=== PATIENT | female | born 1960 | race Caucasian/White ===

== ENCOUNTER 2016-02-29 12:10 | Inpatient (IN) | payer BC, MEDICAID ==
[~2016-02-29] VITALS: Ht 144.8 cm; Wt 45.4 kg
[~2016-02-29 12:10] MED LIST: COREG6.25 MG PO; LIVALO1 MG PO; LIVALO2 MG PO; PREDNISONE5 MG PO; PROAIR HFA8.5 GM INH; PROCARDIA XL60 MG PO; TUMS500 MG PO; ZANTAC150 MG PO; ZETIA10 MG PO
[2016-02-29 12:39] VITALS: BP 201/80
[2016-02-29] MEDS ORDERED: RENAGEL800 MG (12:50)
[2016-02-29] MEDS ORDERED: METOPROLOL TART50 MG PO (12:51)
[2016-02-29] MEDS ORDERED: HYDROCODON-ACE1 EAC7 PO (12:51)
[2016-02-29] MEDS ORDERED: PROTONIX40 MG PO (12:51)
[2016-02-29] MEDS ORDERED: VENTOLIN HFA18 GM INH (12:52)
[2016-02-29 12:53] VITALS: BP 201/80; BMI 21.7
[2016-02-29 12:54] LABS: BASOPHILS 0.1 % (0.0-2.0); EOSINOPHILS 0.9 % (0-7); HEMATOCRIT 35.9 % (36.0-48.0); HEMOGLOBIN 12.4 g/dL (12-16); IMMATURE GRANULOCYTES 0.1 % (0-5); LYMPHOCYTES 24.5 % (15-50); MCH 33.3 pg (26.0-34.0); MCHC 34.5 g/dL (31.0-37.0); MCV 96.5 fL (80.0-100.0); MEAN PLATELET VOLUME 10.8 fL (7.4-10.4); MONOCYTES 6.7 % (2-11); NEUTROPHILS 67.7 % (40-80); PLATELET COUNT 170 10x3/uL (130-400); RBC 3.72 10x6/uL (4.00-5.40); RDW 12.8 % (11.5-14.5); WBC 6.9 10x3/uL (4.8-10.8)
--- NOTE | 2016-02-29 13:22 | NUR ---
bs 27. d 50 25 gm given ivp
--- NOTE | 2016-02-29 13:40 | NUR ---
FSBS RE-CHECKED NOW AT 78. REAL SELAM MIST GIVEN AND ENCOURAGED TO DRINK.
--- NOTE | 2016-02-29 14:21 | NUR ---
1408-FSBS IS 57. ANOTHER 1/2 AMP OF D50 GIVEN.
[2016-02-29 15:41] LABS: ALBUMIN 2.9 g/dL (3.4-5.0); ANION GAP 9.6 mmol/L (8-16); BILIRUBIN - TOTAL 0.41 mg/dL (0.2-1.3); CALCIUM 8.2 mg/dL (8.5-10.1); CARBON DIOXIDE 27.8 mmol/L (21.0-32.0); CREATININE - SERUM 5.2 mg/dL (0.6-1.3); PROTEIN - SERUM 5.7 g/dL (6.4-8.2)
--- NOTE | 2016-02-29 15:41 | NUR ---
PATIENT IS DOING WELL WITH BEDSIDE DIALYSIS. WILL CONTINUE TO MONITOR.
[2016-02-29 15:42] LABS: POTASSIUM - SERUM 2.4 mmol/L (3.5-5.1)
[2016-02-29 15:49] VITALS: BP 150/69
--- NOTE | 2016-02-29 15:55 | NUR ---
1540-CRITICAL POTASSIUM RESULT OF 2.4. CATRINA LOPEZ APN CALLED TO NOTIFY HER. AWAITING CALL BACK. 1545-NEW ORDERS RECEIVED.
--- NOTE | 2016-02-29 16:31 | NUR ---
BLOOD SUGAR IS 59. 2 CONTAINERS OF APPLE JUICE GIVEN WITH 1 PACKAGE OF SUGAR. STILL ON DIALYSIS.
--- NOTE | 2016-02-29 17:15 | NUR ---
RE-CHECKED BLOOD SUGAR WITH RESULT OF 67. MOTHER IS AT BEDSIDE. INSTRUCTED TO BOTH PATIENT AND MOTHER THAT THE PATIENT HAS GOT TO EAT SUPPER WITH HER BLOOD SUGAR. PATIENT REPLIES, "I AM NOT HUNGRY". I TOLD HER THAT SHE NEEDS TO EAT. MOTHER HAD GIVEN HER TWINKE EARILER.
--- NOTE | 2016-02-29 19:32 | NUR ---
INFORMED THAT PT GLUCOSE 56. PROVIDED PT WITH SANDWICH TRAY AND APPLE JUICE. PT STILL HAD DINNER TRAY PRESENT IN ROOM, ASKED PT IF SHE WOULD LIKE TO FINISH DINNER TRAY (APPROX 75% LEFT) OR IF SHE WOULD LIKE TO EAT THE SANDWICH. PT STATED THAT SHE WOULD EAT THE SANDWICH. PT ALSO HAD A TWINKIE ON DINNER TRAY THAT WAS HALF EATEN.
--- NOTE | 2016-02-29 21:15 | NUR ---
RECHECKED PT FSBS. CURRENTLY 69. PT DEMONSTRATES POOR APPETITE. ADMINISTERED 25ML D50
[2016-02-29 22:37] VITALS: BP 142/84
--- NOTE | 2016-03-01 00:16 | NUR ---
pt fsbs rechecked. currently 56. administered 1 tube insta gluc
[2016-03-01 01:38] VITALS: BP 179/72
--- NOTE | 2016-03-01 01:51 | NUR ---
PT RESTING SOUNDLY WITHOUT C/O OR DISTRESS NOTED. CALL LIGHT WITHIN REACH. WILL CONT TO MONITOR.
--- NOTE | 2016-03-01 03:28 | NUR ---
FSBS 67 PROVIDED PT WITH APPLE JUICE
[2016-03-01 05:55] VITALS: BP 159/67
[2016-03-01 07:22] LABS: BASOPHILS 0.2 % (0.0-2.0); EOSINOPHILS 2.2 % (0-7); HEMATOCRIT 33.6 % (36.0-48.0); HEMOGLOBIN 11.3 g/dL (12-16); IMMATURE GRANULOCYTES 0.2 % (0-5); LYMPHOCYTES 45.8 % (15-50); MCH 32.8 pg (26.0-34.0); MCHC 33.6 g/dL (31.0-37.0); MCV 97.7 fL (80.0-100.0); MEAN PLATELET VOLUME 11.1 fL (7.4-10.4); MONOCYTES 6.8 % (2-11); NEUTROPHILS 44.8 % (40-80); PLATELET COUNT 155 10x3/uL (130-400); RBC 3.44 10x6/uL (4.00-5.40); RDW 13.2 % (11.5-14.5)
[2016-03-01 07:31] LABS: ANION GAP 10.5 mmol/L (8-16); CALCIUM 8.3 mg/dL (8.5-10.1); CARBON DIOXIDE 28.6 mmol/L (21.0-32.0); CREATININE - SERUM 4.6 mg/dL (0.6-1.3)
[2016-03-01 07:33] LABS: POTASSIUM - SERUM 3.1 mmol/L (3.5-5.1)
[2016-03-01 07:49] VITALS: BP 165/62
--- NOTE | 2016-03-01 08:01 | NUR ---
PT RESTING IN BED WITH FAMILY MEMBER AT BEDSIDE CALL LIGHT IN REACH NO PROBLEMS WILL MONITER
--- NOTE | 2016-03-01 09:10 | NUR ---
RESTS IN BED WITHOUT NEEDS VOICED. IV PATENT. CALL LIGHT IN REACH. WILL CONT. PLAN OF CARE.
[2016-03-01 10:54] VITALS: Ht 144.8 cm; Wt 45.4 kg
[2016-03-01 11:47] VITALS: BP 107/74
--- NOTE | 2016-03-01 12:00 | NUR ---
PT RESTING IN BED WITH EYES OPEN CALL LIGHT IN REACH NO PROBLEMS WILL MONITER
--- NOTE | 2016-03-01 14:30 | NUR ---
PT IV TO LEFT HAND INFILTRATED IV REMOVED TIP INTACT PT HAND SWOLLEN RESITED IV TO LEFT AC X 2 ATTEMPTS IV FLUIDS RUNNING OREDERED WILL SARAH
[2016-03-01 15:54] VITALS: BP 153/73
--- NOTE | 2016-03-01 20:09 | NUR ---
RESTING IN BED. ALERT ORIENTED CONVERSANT. DENIES NEEDS. NO ACUTE DISTRESS NOTED. PT HAPPY THAT BLOOD SUGAR LEVELS STAYING WITHIN NORMAL LIMITS.
[2016-03-01 20:37] VITALS: BP 183/73
--- NOTE | 2016-03-01 23:10 | NUR ---
PT LAYING IN BED NO DISTRESS OBSERVED CALL LIGHT IN REACH SRX2 BED LOW AND LOCKED WILL MONITOR
[2016-03-02 00:17] VITALS: BP 186/73
[2016-03-02 04:29] VITALS: BP 162/62
[2016-03-02 06:25] LABS: BASOPHILS 0.4 % (0.0-2.0); EOSINOPHILS 4.5 % (0-7); HEMATOCRIT 32.2 % (36.0-48.0); HEMOGLOBIN 10.9 g/dL (12-16); IMMATURE GRANULOCYTES 0.2 % (0-5); MCH 32.6 pg (26.0-34.0); MCHC 33.9 g/dL (31.0-37.0); MCV 96.4 fL (80.0-100.0); MEAN PLATELET VOLUME 10.4 fL (7.4-10.4); MONOCYTES 8.1 % (2-11); NEUTROPHILS 38.8 % (40-80); PLATELET COUNT 139 10x3/uL (130-400); RBC 3.34 10x6/uL (4.00-5.40); RDW 12.5 % (11.5-14.5); WBC 4.9 10x3/uL (4.8-10.8)
[2016-03-02 06:57] LABS: CALCIUM 8.2 mg/dL (8.5-10.1); CARBON DIOXIDE 24.9 mmol/L (21.0-32.0); CREATININE - SERUM 7.1 mg/dL (0.6-1.3); MAGNESIUM - SERUM 1.5 mg/dL (1.8-2.4); PHOSPHOROUS 3.3 mg/dL (2.5-4.9)
[2016-03-02 06:59] LABS: POTASSIUM - SERUM 2.9 mmol/L (3.5-5.1)
--- NOTE | 2016-03-02 07:22 | NUR ---
RECIEVED REPORT ON PATIENT, PATIENTIS ALERT AND ORIENTED AT THIS TIME. PATIENT HAS A L UPPER ARM IV WITH D10 INFUSING AT 50ML/HR. PATIENT IS ON ROOM AIR WITH NAD NOTED, DENIES ANY SOB. PATIENT DENIES ANY NEEDS OR COMPLAINTS. BED LOW AND LOCKED. CPOC
[2016-03-02 07:45] VITALS: BP 153/68
--- NOTE | 2016-03-02 08:45 | NUR ---
MORNING MEDICATIONS GIVEN, ASSESSMENT DONE. PATIENT DENIES ANY NEEDS. CPOC
--- NOTE | 2016-03-02 10:30 | NUR ---
INFORMED CATRINA LOPEZ ABOUT PATIENT POTASSIUM BEING 2.9 SHE SAID SHE WOULD LOOK AT IT AND PUT ORDERS IN. CPOC
[2016-03-02 11:57] VITALS: BP 155/77
--- NOTE | 2016-03-02 12:30 | NUR ---
PATIENT SITTING UP IN BED EATING LUNCH. DENIES ANY NEEDS. CPOC
[2016-03-02 15:03] VITALS: BP 163/74
--- NOTE | 2016-03-02 15:18 | NUR ---
DC PATIENT IVF. PATIENT DENIES ANY NEEDS. CPOC
--- NOTE | 2016-03-02 16:20 | NUR ---
PATIENT FSBS 95, WILL CONT TO MONITOR. CPOC
--- NOTE | 2016-03-02 18:00 | NUR ---
PATIENT REQUESTING VANILLA ICE CREAM, GIVEN DENIES ANY OTHER NEEDS OR COMPLAINTS AT THIS TIME. CPOC
--- NOTE | 2016-03-02 19:30 | NUR ---
ASSESSMENT COMPLETE, DENIES NEEDS AT THIS TIME. LEFT HAND SWELLING NOTED, SKIN TIGHT, PLACED UP ON PILLOW AND ADDED HEAT PACK FOR C 7 C. SERGIO WELL. LEFT AC SL INTACT WITH NO R/S NOTED AT SITE. UP WITH MIN ASSIST, SERGIO WELL. HOB UP SR UP X2, C/L IN REACH. CONTINUE TO MONITOR, DID GIVE HS NITE TRAY AT THIS TIME.
[2016-03-02 20:00] VITALS: BP 152/70
--- NOTE | 2016-03-02 20:30 | NUR ---
FSBS "147" NO COVERAGE NEEDED AT THIS TIME. VOICES NO C/O PAIN OR DISCOMFORT C/L IN REACH.
[2016-03-03] VITALS: BP 170/71
--- NOTE | 2016-03-03 01:17 | NUR ---
EYES CLOSED, RESP EVEN AND UNLAB WITH NO S/S OF ACUTE DISTRESS NOTED. C/L IN REACH.
[2016-03-03 04:00] VITALS: BP 143/74; BP 171/74
[2016-03-03 05:39] LABS: BASOPHILS 0.2 % (0.0-2.0); EOSINOPHILS 6.6 % (0-7); HEMATOCRIT 32.5 % (36.0-48.0); HEMOGLOBIN 11.3 g/dL (12-16); IMMATURE GRANULOCYTES 0.2 % (0-5); LYMPHOCYTES 49.5 % (15-50); MCH 32.8 pg (26.0-34.0); MCHC 34.8 g/dL (31.0-37.0); MEAN PLATELET VOLUME 10.4 fL (7.4-10.4); MONOCYTES 5.7 % (2-11); NEUTROPHILS 37.8 % (40-80); RBC 3.45 10x6/uL (4.00-5.40); RDW 12.1 % (11.5-14.5)
[2016-03-03 06:10] LABS: MCV 94.2 fL (80.0-100.0); PLATELET COUNT 174 10x3/uL (130-400); WBC 6.4 10x3/uL (4.8-10.8)
[2016-03-03 06:38] LABS: ANION GAP 16.1 mmol/L (8-16); CARBON DIOXIDE 23.1 mmol/L (21.0-32.0); POTASSIUM - SERUM 3.2 mmol/L (3.5-5.1)
[2016-03-03 06:41] LABS: CREATININE - SERUM 9.1 mg/dL (0.6-1.3)
--- NOTE | 2016-03-03 07:17 | NUR ---
AM ROUNDING- PT LAYING IN BED ON BACK WITH EYES OPEN RESTING. REQUESTING FOR ME TO CLOSE THE DOOR WHEN I LEAVE. FSBS ACHS. ON ROOM AIR. NO MONITOR. RIGHT RESERVE ARM FOR AVF, + BRUIT, + THRILL. IV SEEN TO LEFT AC THAT IS SALINE LOCKED AT PATENT. LEFT HAND IS SLIGHTLY SWOLLEN FROM PTS BLOOD BEING DRAWN PER REPORT. PT IS UP WITH ASSIST. REFUSES SCDS. POTASSIUM IS 3.2 THIS AM. PER REPORT FROM FIREARMS INSTRUCTOR NURSEWERO RENAL DOCTOR IS AWARE OF HER POTASSIUM BEING LOW. WILL CONTINUE TO MONITOR.
[2016-03-03 08:00] VITALS: BP 128/60
[2016-03-03 12:00] VITALS: BP 124/67
[2016-03-03] MEDS ORDERED: RENAGEL800 MG PO (13:24)
--- NOTE | 2016-03-03 13:41 | NUR ---
PT HAS D/C ORDERS. PT IS SUPPOSE TO DIALYZE TODAY ON REGUALR SCHEDULE. DR. LEIVA IS ON UNIT. ASKED HIM IF PT NEEDS TO HAVE DIALYSIS BEFORE SHE LEAVES, DR. LEIVA STATED YES. CALLED DOWN TO DIALYSIS AND SPOKE WITH LORETA, SHE STATED THAT ANOTHER DIALYSIS NURSE WILL BE IN HER ROOM AFTER SHE GETS DONE WITH ANOTHER PT TO DO DIALYSIS. WILL CONTINUE TO MONITOR.
--- NOTE | 2016-03-03 13:51 | NUR ---
Patient Name: LEONEL FISHER Admission Status: Elective Accout number: [id number] Admission Date: 02-29-2016 : 1960 Admission Diagnosis: Attending: CHRISTIAN Current LOS: 3 Anticipated DC Date: 03-03-2016 Planned Disposition: Home Primary Insurance: [employer] Discharge Planning Comments: * Is the patient Alert and Oriented? Yes 0 * How many steps to enter\exit or inside your home? 9 0 * PCP DR. PEREZ, [place] 0 * Pharmacy [facility] IN [place] 0 * Preadmission Environment Home with Family 0 * ADLs Independent 0 * Equipment Cane 0 * Other Equipment NO MEDICAL EQUIPMENT PROVIDER PREFERENCE 0 * List name and contact numbers for known caregivers / representatives who currently or will assist patient after discharge: HARRIET STALLINGS, MOTHER, 0 * Community resources currently utilized Other 0 * Please name any agencies selected above. OUTPATIENT DIALYSIS [facility], M/W/F, 0530 AM MEDICAID ([facility]) TRANSPORTATION 0 * Additional services required to return to the preadmission environment? No 0 * Can the patient safely return to the preadmission environment? Yes 0 * Has this patient been hospitalized within the prior 30 days at any hospital? No 0 CM MET WITH PT IN ROOM TO DISCUSS DISCHARGE PLANNING AND NEEDS. PT REPORTS LIVING AT HOME INDEPENDENTLY WITH HER MOTHER. PT HAS A CANE AND NO MEDICAL EQUIPMENT PROVIDER PREFERENCE. PT HAS NO OUTSIDE SERVICES ASSISTING IN THE HOME. PT ATTENDS [facility] FOR OUTPATIENT HEMODIALYSIS NO M/W/F EARLY SHIFT, PT TAKES MEDICAID TRANSPORTATION TO AND FROM DIALYSIS. CM DISCUSSED AVAILABILITY OF HOME HEALTH, REHAB SERVICES AND MEDICAL EQUIPMENT. PT DENIES DISCHARGE NEEDS, REPORTS HER SISTER WILL PICK HER UP FOR DISCHARGE HOME. PT THINKS THE DOCTOR WILL BE PRESCRIBING HER A GLUCOMETER AT DISCHARGE AND IF SO, HER MOTHER HAS A LOCAL MEDICAL SUPPLY IN [place] TO PICK IT UP. PT DENIES DISCHARGE NEEDS, PT'S SISTER TO PICK HER UP THIS AFTERNOON. Boss Miner: Brayden Mcdowell
--- NOTE | 2016-03-03 15:46 | NUR ---
PATIENT PATHWAYS - PRL notified of admission. Patient is MWF @ 6:00am at the [facility] Dialysis unit. Medical records forwarded to the clinic for their records. BMM PRL
[2016-03-03 16:00] VITALS: BP 150/72
--- NOTE | 2016-03-03 18:16 | NUR ---
PT IS JUST GETTIN DONE WITH DIALYSIS. AWAITING SISTER AND [id number] TO COME GET HER TO BE D/C STATED SISTER WOULD BE HER AROUND 7:30. WILL PASS THIS ON TO ARCHITECTURE CONSULTANT NURSE.
--- NOTE | 2016-03-03 18:45 | NUR ---
D/C PAPERWORK EXPLAINED TO PT AND SIGNED BY PT. PLACED D/C PAPERWORK IN CHART. WILL PASS ON IN REPORT TO TAKE PTS IV CATHETER OUT WHEN SISTER GETS HERE TO PICK HER UP.
[2016-03-04 05:13] LABS: C-PEPTIDE 10.2 ng/mL (1.1-4.4)
[2016-03-09 03:06] LABS: INSULIN ANTIBODIES <5.0 uU/mL (())
[2016-03-14 19:10] LABS: INSULIN LIKE GROWTH FACTOR II 1225 ng/mL (())
== END 2016-03-03 19:20 | disposition home or self-care (01) | DRG 917 ==
LOC: D.M2 12:10
PROVIDERS: Internal Medicine; ADMIT Internal Medicine Nephrology
PROC: 5A1D60Z (ICD-10-PCS; principal; 2016-02-29)
DX: T50.991A Poisoning by other drugs, medicaments and biological substances, accidental (unintentional), initial encounter (principal); N18.6 End stage renal disease; I12.0 Hypertensive chronic kidney disease with stage 5 chronic kidney disease or end stage renal disease; Z94.0 Kidney transplant status; E16.0 Drug-induced hypoglycemia without coma; Z99.2 Dependence on renal dialysis; D63.1 Anemia in chronic kidney disease; E87.6 Hypokalemia

== ENCOUNTER 2017-06-21 05:12 | Inpatient (IN) | payer MEDICAID ==
[2017-06-21] VITALS (26 sets, daily range): BP systolic 105–211; BP diastolic 41–97
[~2017-06-21] VITALS: Ht 144.8 cm; Wt 41.1 kg
--- NOTE | ~2017-06-21 | HEMODYNAMI ---
PATIENT:LEONEL FISHER MEDICAL RECORD: [id number] : 60 LOCATION:[facility] D.2136 [facility]# [id number] ADMISSION DATE: 06/21/17 Generatedon:06/25/201711:05 Patient name: LEONEL FISHER Patient #: [id number] SSN: DO B: 1960 Date of study: 06/25/2017 Page: Of Hemodynamic Procedure Report Patient Data Patient Demographics Procedure consent was obtained First Name: LEONEL Gender: Female Last Name: NATALIA : 1960 Middle Initial: E Age: 56 year(s) Patient #: [id number] Race: Unknown Additional ID: [id number] Contact details [address]: [address] [place] [address] State: [place] City: [place] Zip code: [address] Past Medical History Allergies Allergen Reaction Date Comments Reported Other allergy 06/25/2017 PCN, Codeine, Phenergan, azithromycin, adhesive, hydrocodone. Admission Admission Data Admission Date: 06/21/2017 Admission Time: 6:23 Room #: D.2136 Lab Results Lab Result Date: 06/25/2017 Lab Result Time: 5:03 Biochemistry Name Units Result Min Max BUN mg/dl 58 --(----)-* 7 18 Creatinine mg/dl 6.1 --(----)-* 0.6 1.3 CBC Name Units Result Min Max Hematocrit % 29.4 *-(----)-- 42 54 Hemoglobin g/dl 9.8 *-(----)-- 13.5 17.5 Procedure Procedure Types Cath Procedure Diagnostic Procedure Right Heart Right Heart Cath Right Heart Pharmacology Study Sedation Charges Moderate Sedation up to 15 minutes Procedure Description Procedure Date Procedure Date: 06/25/2017 Procedure Start Time: 10:37 Procedure End Time: 11:04 Procedure Staff Name Function Hill Serrano MD Performing Physician Bhargav Kwok RN Nurse Sherlyn Washington RT Scrub Cortez Ledbetter RT Monitor Procedure Data Cath Procedure Fluoroscopy Diagnostic fluoroscopy Total fluoroscopy Time: 3.4 time: 3.4 min min Diagnostic fluoroscopy Total fluoroscopy dose: 49 dose: 49 mGy mGy Contrast Material Contrast Material Type Amount (ml) Isovue 300 0 Entry Location Entry Primary Successful Side Size Upsize Upsize Entry Closure Poole ccessful Closure Location (Fr) 1 (Fr) 2 (Fr) Remarks Device Remarks Femoral Right 7 Fr Manual vein Short Compression Estimated blood loss: 5 ml Diagnostic catheters Device Type Used For End Catheter Placement SWAN 7Fr Thermodilution Procedure cather (131F7P) Procedure Complications No complications Procedure Medications Medication Administration Route Dosage 0.9% NaCl I.V. 10 ml/hr Oxygen etCO2 Nasal cannula 2 l/min Heparin Flush Bag added to field 2 bags (1000units/500ml NS) Lidocaine 2% added to field 20 Versed I.V. 2 mg Fentanyl I.V. 100 mcg Adenosine (mcg) I.V. 50 Adenosine (mcg) I.V. 100 Adenosine (mcg) I.V. 150 Adenosine (mcg) I.V. 200 Adenosine (mcg) wasted 200 Hemodynamics Rest HGB: 9.8 (g/dl) Heart Rate: 69 (bpm) Pressure Samples Time Site Value (mmHg) Purpose Heart Use Rate(bpm) 10:47 PA 80/40(58) Snapshot 67 10:48 PCW 43/65(48) Snapshot 65 10:51 PA 83/42(61) Snapshot 66 10:54 PA 75/36(55) Snapshot 64 10:56 PA 71/35(48) Snapshot 71 10:58 PA 64/30(48) Snapshot 69 11:00 RV 62/15,23 Snapshot 64 11:00 RA 24/24(21) Snapshot 63 Snapshots Pre Cath Intra NCS Post Cath Vital Signs Time Heart Resp SPO2 etCO2 NIBP (mmHg) Rhythm Pain Sedation Rate (ipm) (%) (mmHg) Status Level (bpm) 10:25:02 67 32 100 30.6 200/81(144) NSR 0 (11) 10(A) , No pain 10:29:53 66 14 100 29.9 194/76(152) NSR 0 (11) 10(A) , No pain 10:34:42 63 16 100 0 176/80(144) NSR 0 (11) 10(A) , No pain 10:40:11 67 14 90 24.7 198/99(165) NSR 0 (11) 10(A) , No pain 10:44:56 62 12 85 46.3 201/91(151) NSR 0 (11) 9(A) , No pain 10:49:43 65 15 98 52.3 200/90(155) NSR 0 (11) 9(A) , No pain 11:02:54 62 6 99 41.9 169/78(149) NSR 0 (11) 10(A) , No pain Medications Time Medication Route Dose Verified Delivered Reason Not es Effectiveness by by 10:35:47 0.9% NaCl I.V. 10 ml/hr Bhargav Bhargav Per Lorigan Lorigan physician RN RN 10:35:59 Oxygen etCO2 2 l/min Bhargav Bhargav Per Nasal Lorigan Lorigan physician cannula RN RN 10:36:11 Heparin Flush added 2 bags Bhargav Bhargav used for Bag to Lorigan Lorigan procedure (1000units/500ml field RN RN NS) 10:36:22 Lidocaine 2% added 20ml vial Bhargav Bhargav for local to Lorigan Lorigan anesthetic field RN RN 10:36:32 Versed I.V. 2 mg Bhargav Bhargav for sedation Lorigan Lorigan RN RN 10:36:41 Fentanyl I.V. 100 mcg Bhargav Bhargav for sedation Lorigan Lorigan RN RN 10:50:33 Adenosine (mcg) I.V. 50 Bhargav Bhargav for mcg\kg\min Lorigan Lorigan vasodilation RN RN 10:52:35 Adenosine (mcg) I.V. 100 Bhargav Bhargav for mcg\kg\min Lorigan Lorigan vasodilation RN RN 10:54:56 Adenosine (mcg) I.V. 150 Bhargav Bhargav for mcg\kg\min Lorigan Lorigan vasodilation RN RN 10:56:34 Adenosine (mcg) I.V. 200 Bhargav Bhargav for mcg\kg\min Lorigan Lorigan vasodilation RN RN 11:00:00 Adenosine (mcg) wasted 200 Bhargav Bhargav to sharp's mcg\kg\min Lorigan Lorigan RN process control operator Log Time Note 9:36:26 Time tracking: Regular hours (M-F 7:00 - 5:00) 9:36:29 Plan of Care:Hemodynamics will remain stable., Cardiac rhythm will remain stable., Comfort level will be maintained., Respiratory function will remain adequate., Patient/ family verbilizes understanding of procedure., Procedure tolerated without complication., Recovers from procedure without complications.. 9:36:36 Use device set Right Heart Kit 9:36:41 SHEATH 7FR [place] ([id number]) opened to sterile field. 9:36:41 Medex Logical Single Monitoring RHC Kit ([id number]) opened to sterile field. 9:36:45 Use device set CATH PACK 9:36:51 Medline Cath Pack ([id number]) opened to sterile field. 9:36:52 Bag Decanter (2002S) opened to sterile field. 9:36:57 ACIST Syringe (23978) opened to sterile field. 9:36:57 ACIST Hand Control (91071) opened to sterile field. 9:36:58 ACIST Manifold (06960) opened to sterile field. 9:58:45 Bhargav Kwok RN sent for patient. Start room use. 10:23:18 Patient received from Med II to CCL 1 Alert and oriented. Tansferred to table in Supine position. 10:23:19 Warm blankets applied, and alan hugger turned on for patient comfort. 10:23:20 Correct patient and procedure confirmed by team. 10:23:21 Signed procedure consent form obtained from patient. 10:23:22 ECG and BP/O2 sat monitors applied to patient. 10:23:22 Vital chart was started 10:23:24 Baseline sample Acquired. 10:23:28 Rhythm: sinus rhythm 10:23:37 Full Disclosure recording started 10:23:43 H&P Date Dictated: 06/24/2017 Within 30 days and on chart.. 10:23:45 Pre-procedure instructions explained to patient. 10:23:45 Pre-op teaching completed and patient verbalized understanding. 10:23:46 Family in waiting room. 10:23:53 Patient NPO since Breakfast. 10:24:33 Patient allergic to Other allergyPCN, Codeine, Phenergan, azithromycin, adhesive, hydrocodone. 10:24:35 Is the patient allergic to Iodine/contrast media? No. 10:24:36 Is patient on blood thinner?No 10:24:46 Patient diabetic? No. 10:24:49 Previous problem with sedation/anesthesia? No ? 10:24:50 Snore? No 10:24:51 Sleep apnea? No 10:24:52 Deviated septum? No 10:24:53 Opens mouth fully? Yes 10:24:53 Sticks out tongue? Yes 10:24:56 Airway obstruction? Yes COPD 10:25:07 Dentures? No ? 10:25:12 Pre procedure: right dorsailis pedis pulse 1+ Palpable, but thready & weak; easily obliterated 10:25:14 Patient pain scale 0/10 ?. 10:25:18 IV patent on arrival in left forearm with 0.9% NaCl at [facility]. 10::59 Lab Result : Creatinine 6.1 mg/dl 10::59 Lab Result : BUN 58 mg/dl 10::59 Lab Result : Hemoglobin 9.8 g/dl ::59 Lab Result : Hematocrit 29.4 % 10:: Lab results completed and on chart. 10:26:04 Right groin area was prepped with chlora-prep and draped in sterile fashion 10::04 Alarms reviewed by R. N. 10::05 Sharps counted by scrub and verified by R.N. 10:34:09 Physician arrived 10:34:10 --------ALL STOP TIME OUT------ 10:34:10 Final Timeout: patient, procedure, and site verified with staff and physician. All members of the team are in agreement. 10:34:12 Right groin site verified by team. 10:34:15 Physical assessment completed. ASA score P 2 - A patient with mild systemic disease as per Hill Serrano MD. 10:34:18 Sedation plan: IV Moderate Sedation Medication:Versed, Fentanyl 10:34:26 Zero performed for pressure channel P1 10:35:47 0.9% NaCl 10 ml/hr I.V. was administered by Bhargav Kwok RN; Per physician; 10:35:59 Oxygen 2 l/min etCO2 Nasal cannula was administered by Bhargav Kwok RN; Per physician; 10:36:11 Heparin Flush Bag (1000units/500ml NS) 2 bags added to field was administered by Bhargav Kwok RN; used for procedure; 10:36:22 Lidocaine 2% 20ml vial added to field was administered by Bhargav Kwok RN; for local anesthetic; 10:36:32 Versed 2 mg I.V. was administered by Bhargav Kwok RN; for sedation; 10:36:41 Fentanyl 100 mcg I.V. was administered by Bhargav Kwok RN; for sedation; 10:37:00 Procedure started. 10:37:03 Local anesthetic to right femoral vein with Lidocaine 2% by Hill Serrano MD.INITIAL ACCESS ONLY 10:42:21 A 7 Fr Short sheath was inserted into the Right Femoral vein 10:44:34 A SWAN 7Fr Thermodilution cather (131F7P) was advanced over the wire and used for Procedure. 10:44:44 DIAGNOSTIC WIRE .025 150cm J ([id number]) opened to sterile field. 10:46:59 .025 WIRE ADVANCE THROUGH SWAN FOR PLACEMENT 10:47:07 Wire removed. 10:50:33 Adenosine (mcg) 50 mcg\kg\min I.V. was administered by Bhargav Kwok RN; for vasodilation; 10:51:36 Timer 1 started at 10:49 AM, stopped at 10:51 AM, duration 00:02:07 sec. 10:52:35 Adenosine (mcg) 100 mcg\kg\min I.V. was administered by Bhargav Kwok RN; for vasodilation; 10:54:26 Timer 1 started at 10:52 AM, stopped at 10:54 AM, duration 00:02:06 sec. 10:54:56 Adenosine (mcg) 150 mcg\kg\min I.V. was administered by Bhargav Kwok RN; for vasodilation; 10:56:34 Adenosine (mcg) 200 mcg\kg\min I.V. was administered by Bhargav Kwok RN; for vasodilation; 10:56:47 Timer 1 started at 10:54 AM, stopped at 10:56 AM, duration 00:02:04 sec. 10:59:02 Timer 1 started at 10:56 AM, stopped at 10:59 AM, duration 00:02:05 sec. 11:00:00 Adenosine (mcg) 200 mcg\kg\min wasted was administered by Bhargav Kwok RN; to sharp's; 11:00:44 Catheter removed. 11:00:56 Sheath removed intact; hemostasis achieved with Manual Compression to the Right Femoral vein. 11:00:58 Procedure ended.(Physican Out) 11:01:19 Vital chart was stopped 11::22 Vital chart was started 11:01:58 Fluoroscopy time 03.40 minutes. 11:02:02 Fluoroscopy dose: 49 mGy 11:02:02 Flurop Dose total: 49 11:02:04 Contrast amount:Isovue 300 0ml. 11:02:07 Sharps counted by scrub and verified by R.N. 11:02:10 Insertion/operative site no bleeding no hematoma. 11:02:13 Post-op/insertion site Right Femoral vein dressed using a 4 x 4 and Tegaderm. 11:02:19 Post right femoral vein:stable, soft, clean and dry 11:02:28 Post Procedure Pulses reassessed and unchanged 11:02:31 Post-procedure physical assessment completed. ASA score P 2 - A patient with mild systemic disease as per Hill Serrano MD. 11:02:35 Post procedure rhythm: unchanged. 11:02:38 Estimated blood loss: 5 ml 11:02:39 Post procedure instruction explained to patient.Patient verbalizes understanding. 11:02:40 Patient needs reinforcement of post procedure teaching. 11:03:31 Procedure type changed to Cath procedure, Diagnostic procedure, Right Heart, Right Heart Cath, Right Heart Pharmacology Study, Sedation Charges, Moderate Sedation up to 15 minutes 11:03:48 Procedure and supply charges have been captured, reviewed, submitted and are correct. 11:03:50 Procedure Complication : No complications 11:03:53 Vital chart was stopped 11:03:54 See physician's report for complete and final results. 11:03:55 Report given to PCU. 11:03:57 Patient transfered to PCU with Stretcher. 11:04:00 Procedure ended. 11:04:00 Full Disclosure recording stopped 11:04:33 End room use (Document Last) Device Usage Item Name Manufacture Quantity Catalog Hospital Part Current Minima l Lot# / Number Charge Number Stock Stock Serial# Code SHEATH 7FR Terumo 1 [id number] [id number] 5 [place] ([id number]) Medex Logical Sexton's 1 [id number] 354834 44528 982108 5 Single Medical Monitoring RHC Kit ([id number]) Medline Cath Cardinal 1 [id number] 986586 53784 470129 5 Pack Health ([id number]) Bag Decanter Microtek 1 293521 28206 318022 5 () Medical Inc. ACIST Syringe Acist 1 57091 293009 143314 591812 20 (55636) Medical Systems Inc ACIST Hand Acist 1 79550 277025 444752 016644 5 Control Medical (46493) Systems Inc ACIST Manifold Acist 1 37539 111496 849265 335303 5 (03923) Medical Systems Inc SWAN 7Fr Lee 1 131F7P 556942 89387 540660 3 Thermodilution Lifesciences cather (131F7P) DIAGNOSTIC [place] 1 363980 579163 179947 678518 2 WIRE .025 150cm J (116012) Signature Audit [place] Stage Time Signature Unsigned Intra-Procedure 06/25/2017 Cortez Ledebtter 11:05:51 AM RT(R) Signatures Monitor : Cortez Ledbetter RT Signature : Date : Time : [address] [address]
--- NOTE | ~2017-06-21 | CN ---
PATIENT NAME:LEONEL FISHER MEDICAL RECORD: [id number] : 60 LOCATION:D. D.2136 ADMIT DATE: 06/21/17 ACCOUNT: [id number] CONSULTING PHYSICIAN: KIERA CAIN MD REFERRING PHYSICIAN: NAEL IBRAHIM MD DATE OF CONSULTATION: 06/24/2017 DIAGNOSES: 1. Shortness of breath, dyspnea on exertion. 2. Pulmonary hypertension. 3. End-stage renal disease. 4. Hypertension. 5. Gastroesophageal reflux disease. HISTORY OF PRESENT ILLNESS: Ms. Fisher presents with respiratory failure requiring extubation. She is now intubated. She had an echocardiogram revealing a pulmonary systolic pressure of 94. We were asked to do right heart catheterization with vasodilatory challenge to see if she is responsive to vasodilators. PHYSICAL EXAMINATION: GENERAL APPEARANCE: Well-nourished, well-developed, appears stated age. Level of distress, comfortable. PSYCHIATRIC: Mental status, alert, normal affect. Orientation, oriented to time, place and person. EYES: Lids and conjunctiva, noninjected. No discharge, no pallor. ENT: Lips, teeth, gums, normal dentition. Oropharynx, no cyanosis, no pallor. NECK: Carotid arteries, bilateral normal upstroke, no bruits, no thrills. JUGULAR VEINS: No jugular venous pressure or distention. CERVICAL LYMPH NODES: Nontender, nonenlarged. THYROID: Not enlarged. Nontender. No nodules. LUNGS: Respiratory effort, unlabored. CHEST: Normal curvature. No thoracic deformity. No chest wall tenderness. Percussion, resonant. Auscultation, clear. No wheezes, no rales, no rhonchi. CARDIOVASCULAR: Precordial exam, nondisplaced. No heaves or pericardial thrills. Rate and rhythm, regular. Heart sounds, normal S1, normal S2. No S3, no gallop, no rub. Systolic murmur, not heard. Diastolic murmur, not heard. EXTREMITIES: No cyanosis, no edema. Peripheral pulses, full and equal in all extremities, except as noted. No bruits appreciated. ABDOMEN: Soft, nondistended. Normal aorta. No bruit. Nontender. No masses. Liver, nontender, no hepatomegaly. Spleen, nontender, no splenomegaly. MUSCULOSKELETAL: No joint tenderness. No joint swelling. No erythema. NEUROLOGICAL: Normal gait, normal strength, normal tone. SKIN: Warm and dry. OVERALL IMPRESSION: Pulmonary hypertension that is severe suggested by echocardiogram. We will do a right heart catheterization with adenosine infusion to see if she responds to vasodilators. TRANSINT:[id number] Voice Confirmation ID: [id number] DOCUMENT ID: [id number] CONSULT REPORT [id number] LEONEL FISHER, KIERA JIMENEZ at 1444 CC: [id number] DICTATION DATE: 06/24/17 1602 COMPETITIVE SHOPPER: 06/24/17 192 DIS IN 06/26/17 [facility] [address] [place] [address]
[~2017-06-21 05:12] MED LIST changes: +HYDROCODON-ACE1 EAC7 PO; +METOPROLOL TART50 MG PO; +PROTONIX40 MG PO; +RENAGEL800 MG; +RENAGEL800 MG PO; +VENTOLIN HFA18 GM INH
[2017-06-21 08:15] LABS: ANION GAP 15.9 mmol/L (8-16); BASOPHILS 0.3 % (0-2); CALCIUM 8.9 mg/dL (8.5-10.1); CARBON DIOXIDE 22.5 mmol/L (21.0-32.0); CREATININE - SERUM 8.4 mg/dL (0.6-1.3); EOSINOPHILS 1.7 % (0-7); HEMATOCRIT 25.6 % (36.0-48.0); HEMOGLOBIN 8.3 g/dL (12-16); LYMPHOCYTES 45.8 % (15-50); MCH 31.2 pg (26.0-34.0); MCHC 32.4 g/dL (31.0-37.0); MCV 96.2 fL (80.0-100.0); MEAN PLATELET VOLUME 10.2 fL (7.4-10.4); MONOCYTES 9.2 % (2-11); PLATELET COUNT 152 10x3/uL (130-400); POTASSIUM - SERUM 3.4 mmol/L (3.5-5.1); RBC 2.66 10x6/uL (4.00-5.40); WBC 3.6 10x3/uL (4.8-10.8)
[2017-06-22] VITALS (24 sets, daily range): BP systolic 121–194; BP diastolic 53–80; Ht 144.8 cm; Wt 41.1 kg
[2017-06-22 03:56] LABS: BASOPHILS 0 % (0-2); EOSINOPHILS 0 % (0-7); HEMATOCRIT 25.9 % (36.0-48.0); HEMOGLOBIN 8.7 g/dL (12-16); IMMATURE GRANULOCYTES 0.3 % (0-5); LYMPHOCYTES 22.5 % (15-50); MCH 32.1 pg (26.0-34.0); MCHC 33.6 g/dL (31.0-37.0); MCV 95.6 fL (80.0-100.0); MEAN PLATELET VOLUME 10.8 fL (7.4-10.4); MONOCYTES 3.5 % (2-11); NEUTROPHILS 73.7 % (40-80); PLATELET COUNT 176 10x3/uL (130-400); RBC 2.71 10x6/uL (4.00-5.40); RDW 14.7 % (11.5-14.5); WBC 2.9 10x3/uL (4.8-10.8)
[2017-06-22 04:52] LABS: BILIRUBIN - TOTAL 0.47 mg/dL (0.2-1.3); CALCIUM 8.6 mg/dL (8.5-10.1); CARBON DIOXIDE 26.5 mmol/L (21.0-32.0); MAGNESIUM - SERUM 1.8 mg/dL (1.8-2.4); PHOSPHOROUS 3.3 mg/dL (2.5-4.9); PROTEIN - SERUM 5.9 g/dL (6.4-8.2)
[2017-06-22 04:55] LABS: ANION GAP 15.8 mmol/L (8-16); CREATININE - SERUM 5.1 mg/dL (0.6-1.3); POTASSIUM - SERUM 4.3 mmol/L (3.5-5.1); TROPONIN-I 0.083 ng/mL (0.000-0.060)
[2017-06-23] VITALS (24 sets, daily range): BP systolic 121–205; BP diastolic 51–93
[2017-06-23 04:36] LABS: BASOPHILS 0 % (0-2); EOSINOPHILS 0 % (0-7); HEMATOCRIT 30.3 % (36.0-48.0); HEMOGLOBIN 9.6 g/dL (12-16); LYMPHOCYTES 17.7 % (15-50); MCH 30.9 pg (26.0-34.0); MCHC 31.7 g/dL (31.0-37.0); MCV 97.4 fL (80.0-100.0); MEAN PLATELET VOLUME 10.7 fL (7.4-10.4); MONOCYTES 2.2 % (2-11); NEUTROPHILS 80.1 % (40-80); RBC 3.11 10x6/uL (4.00-5.40); RDW 14.4 % (11.5-14.5)
[2017-06-23 04:40] LABS: PLATELET COUNT 296 10x3/uL (130-400); WBC 4.1 10x3/uL (4.8-10.8)
[2017-06-23 04:46] LABS: ANION GAP 15.9 mmol/L (8-16); CALCIUM 8.7 mg/dL (8.5-10.1); CARBON DIOXIDE 28.9 mmol/L (21.0-32.0); POTASSIUM - SERUM 4.8 mmol/L (3.5-5.1)
[2017-06-23 05:02] LABS: CREATININE - SERUM 6.7 mg/dL (0.6-1.3)
[2017-06-24] VITALS (11 sets, daily range): BP systolic 164–217; BP diastolic 62–82
[2017-06-24 04:39] LABS: BASOPHILS 0 % (0-2); EOSINOPHILS 0 % (0-7); HEMATOCRIT 28.5 % (36.0-48.0); HEMOGLOBIN 9.1 g/dL (12-16); LYMPHOCYTES 16.3 % (15-50); MCH 31.3 pg (26.0-34.0); MCHC 31.9 g/dL (31.0-37.0); MCV 97.9 fL (80.0-100.0); MEAN PLATELET VOLUME 10.2 fL (7.4-10.4); MONOCYTES 4.8 % (2-11); NEUTROPHILS 78.9 % (40-80); RBC 2.91 10x6/uL (4.00-5.40); RDW 14.1 % (11.5-14.5); WBC 4.5 10x3/uL (4.8-10.8)
[2017-06-24 04:43] LABS: PLATELET COUNT 226 10x3/uL (130-400)
[2017-06-24 04:54] LABS: ANION GAP 14.9 mmol/L (8-16); CALCIUM 8.5 mg/dL (8.5-10.1); CARBON DIOXIDE 28.3 mmol/L (21.0-32.0); POTASSIUM - SERUM 4.2 mmol/L (3.5-5.1)
[2017-06-24 05:04] LABS: CREATININE - SERUM 4.7 mg/dL (0.6-1.3)
[2017-06-24 09:20] LABS: ANTI-GLOMERULAR BASMENT MEMBRN 2 units (0-20)
[2017-06-24 10:22] LABS: ANGIOTENSIN CONVERTING ENZYME 36 U/L (14-82)
[2017-06-24 15:27] LABS: ANCA - ANTIMYELOPEROXIDASE <9.0 U/mL (0.0-9.0); ANCA - ANTIPROTEINASE 3 <3.5 U/mL (0.0-3.5); ANCA - ATYPICAL <1:20 titer (Neg:<1:20); ANCA - CYTOPLASMIC <1:20 titer (Neg:<1:20); ANCA - PERINUCLEAR <1:20 titer (Neg:<1:20)
[2017-06-25] VITALS: BP 153/69
[2017-06-25 04:00] VITALS: BP 174/76
[2017-06-25 05:42] LABS: BASOPHILS 0 % (0-2); EOSINOPHILS 0 % (0-7); HEMATOCRIT 29.4 % (36.0-48.0); HEMOGLOBIN 9.8 g/dL (12-16); LYMPHOCYTES 18.5 % (15-50); MCH 31.7 pg (26.0-34.0); MCHC 33.3 g/dL (31.0-37.0); MEAN PLATELET VOLUME 10.3 fL (7.4-10.4); MONOCYTES 4.2 % (2-11); NEUTROPHILS 77.3 % (40-80); PLATELET COUNT 249 10x3/uL (130-400); RBC 3.09 10x6/uL (4.00-5.40); RDW 13.7 % (11.5-14.5); WBC 4.3 10x3/uL (4.8-10.8)
[2017-06-25 06:01] LABS: MCV 95.1 fL (80.0-100.0)
[2017-06-25 06:09] LABS: ANION GAP 18.8 mmol/L (8-16); CALCIUM 8.4 mg/dL (8.5-10.1); CARBON DIOXIDE 25.4 mmol/L (21.0-32.0); POTASSIUM - SERUM 4.2 mmol/L (3.5-5.1)
[2017-06-25 06:10] LABS: CREATININE - SERUM 6.1 mg/dL (0.6-1.3)
[2017-06-25 08:05] VITALS: BP 170/71
[2017-06-25 16:05] VITALS: BP 152/75
[2017-06-25 21:08] LABS: IMMUNOGLOBULIN E <2 IU/mL (0-100)
[2017-06-25 21:16] VITALS: BP 177/69
[2017-06-26 01:25] VITALS: BP 144/68
[2017-06-26 04:56] VITALS: BP 171/70
[2017-06-26 06:43] LABS: BASOPHILS 0 % (0-2); EOSINOPHILS 0 % (0-7); HEMATOCRIT 27.3 % (36.0-48.0); HEMOGLOBIN 8.8 g/dL (12-16); IMMATURE GRANULOCYTES 0.3 % (0-5); LYMPHOCYTES 23.9 % (15-50); MCHC 32.2 g/dL (31.0-37.0); MCV 96.1 fL (80.0-100.0); MEAN PLATELET VOLUME 10.7 fL (7.4-10.4); MONOCYTES 5.3 % (2-11); NEUTROPHILS 70.5 % (40-80); PLATELET COUNT 246 10x3/uL (130-400); RBC 2.84 10x6/uL (4.00-5.40); RDW 13.7 % (11.5-14.5); WBC 3.9 10x3/uL (4.8-10.8)
[2017-06-26 07:41] VITALS: BP 182/68
[2017-06-26] MEDS ORDERED: VIBRAMYCIN 100100 MG PO (12:38)
[2017-06-26] MEDS ORDERED: OMNICEF300 MG PO (12:39)
[2017-06-26] MEDS ORDERED: PREDNISONE10 MG PO (12:39)
[2017-06-26 16:13] VITALS: BP 127/87
== END 2017-06-26 16:33 | disposition home or self-care (01) | DRG 208 ==
LOC: D.CVICU 05:12 → D.M2 06:23 → D.CVICU 06:23 → D.M2 06-24 13:41
PROVIDERS: Internal Medicine Nephrology; Internal Medicine Pulmonary Disease
PROC: 5A1D70Z Performance of Urinary Filtration, Intermittent, Less than 6 Hours Per Day (ICD-10-PCS; principal; 2017-06-21)
PROC: 5A1945Z Respiratory Ventilation, 24-96 Consecutive Hours (ICD-10-PCS; 2017-06-21)
PROC: 0BH17EZ Insertion of Endotracheal Airway into Trachea, Via Natural or Artificial Opening (ICD-10-PCS; 2017-06-21)
DX: J96.22 Acute and chronic respiratory failure with hypercapnia (principal); N18.6 End stage renal disease; I12.0 Hypertensive chronic kidney disease with stage 5 chronic kidney disease or end stage renal disease; Z68.1 Body mass index [BMI] 19.9 or less, adult; D63.1 Anemia in chronic kidney disease; I07.1 Rheumatic tricuspid insufficiency; K21.9 Gastro-esophageal reflux disease without esophagitis; J30.9 Allergic rhinitis, unspecified; R63.6 Underweight; I16.0 Hypertensive urgency; Z99.2 Dependence on renal dialysis; I27.20 Pulmonary hypertension, unspecified; J44.9 Chronic obstructive pulmonary disease, unspecified

== ENCOUNTER 2017-08-04 02:31 | Inpatient (IN) | payer MEDICAID ==
[2017-08-04] VITALS (24 sets, daily range): BP systolic 74–190; BP diastolic 48–82; BMI 28.9
[~2017-08-04] VITALS: Ht 142.2 cm; Wt 40.5 kg
--- NOTE | ~2017-08-04 | OP ---
PATIENT NAME: LEONEL FISHER MEDICAL RECORD: [id number] :60 LOCATION:.[facility] D.2307 ADMISSION DATE:08/04/17 SURGEON: JONATHAN LOONEY MD DATE OF OPERATION: 08/05/2017 SURGEON: Jonathan Looney MD MAN[employer]ING [employer] CONTROLLER: SARAH Duval OPERATION PERFORMED: Right tube thoracostomy and removal of old chest tube with closure of thoracostomy wound. PREOPERATIVE DIAGNOSIS: Traumatic right pneumothorax status post cardiopulmonary resuscitation. POSTOPERATIVE DIAGNOSIS: Traumatic right pneumothorax status post cardiopulmonary resuscitation. ANESTHESIA: General endotracheal anesthesia and local 1% Xylocaine. COMPLICATIONS: None. SPECIMENS: None. CONDITION: Critical. DISPOSITION: ICU. OPERATIVE FINDINGS: Mid clavicular line approximately seventh interspace below what appeared to be old subcutaneous mastectomy scars, the pleural cavity was entered and the patient had very small anterior interspaces. A large Chandni hemostat was inserted with some intrapleural adhesions noted, but carefully inserted toward the apex where the tube was placed, sutured in place, connected with good return of air. The old chest tube was removed. The old silk sutures were removed and the old thoracostomy wound was closed in 2 layers. OPERATIVE INDICATION: Persistent pneumothorax with right chest tube placed at outside hospital. PROCEDURE NOTE IN DETAIL: The patient was brought to the operating suite. Chest was prepped and draped. The more anterior chest tube was placed, 28 [place] tube and sutured in place. The old tube removed. Wound closed. Dressing applied. Returned to ICU. TRANSINT:[id number] Voice Confirmation ID: [id number] DOCUMENT ID: [id number] JONATHAN LOONEY MD at 0728 CC: MORIS VILLEGAS MD [id number] DICTATION DATE: 08/05/17 1647 JAMMER OPERATOR: 08/05/17 1703 ADM IN [facility] [address] [place] [address]
--- NOTE | ~2017-08-04 | CN ---
PATIENT NAME:LEONEL FISHER MEDICAL RECORD: [id number] : 60 LOCATION:[id number] ADMIT DATE: 08/04/17 ACCOUNT: [id number] CONSULTING PHYSICIAN: MORIS VILLEGAS MD REFERRING PHYSICIAN: JARED LEIVA MD DATE OF CONSULTATION: 08/04/2017 CONSULT REQUESTING PHYSICIAN: Dr. Nuñez. REASON FOR CONSULTATION: Vent management. HISTORY OF PRESENT ILLNESS: Ms. Fisher is a 56-year-old female, who is now orally intubated and sedated. The history was taken by talking to Dr. Nuñez and reviewing the patient's note. The patient has a history of end-stage renal disease. She is on hemodialysis as well as the patient has severe pulmonary hypertension. The patient was brought into [place] [facility] with acute dyspnea. The patient became bradycardic over there and the patient has right-sided pneumothorax and a chest tube was placed. After stabilization, the patient was transferred to [place] for advanced care. REVIEW OF SYSTEMS: Mainly in the history of present illness. PAST MEDICAL HISTORY: 1. Chronic hypoxic respiratory failure. 2. Asthma, COPD. 3. Pulmonary hypertension of severe degree. 4. End-stage renal disease, on hemodialysis. 5. Hypertension. PAST SURGICAL HISTORY: 1. Cholecystectomy. 2. Appendectomy. 3. Hysterectomy. 4. Dialysis access placement. 5. Kidney transplant times 2. 6. Knee surgery. 7. Breast reduction surgery. ALLERGIES: SHE IS ALLERGIC TO PENICILLIN, CODEINE, HYDROCODONE, PROMETHAZINE, ADHESIVE, AND ZITHROMAX. MEDICATIONS: [employer] [place] is reviewed. PERSONAL AND SOCIAL HISTORY: The smoking history is unknown. FAMILY HISTORY: Noncontributory. PHYSICAL EXAMINATION: GENERAL: Now, the patient is orally intubated and sedated. VITAL SIGNS: The blood pressure is 100/49, pulse ox is 99, but she is on assist control, mechanical ventilation, 100% oxygen. HEENT: Conjunctivae are pink. Sclerae are not icteric. NECK: Supple, no JVD. CHEST: There is right-sided chest tube placement with air leak. HEART: Rhythm regular, normal heart sound, grade II/ systolic murmur. CONSULT REPORT [id number] LEONEL FISHER ABDOMEN: Soft, bowel sounds present. No hepatosplenomegaly. RECTAL: Deferred. EXTREMITIES: No cyanosis, no clubbing, no pedal edema. SKIN: Warm, normal turgor. CENTRAL NERVOUS SYSTEM: The patient is orally intubated and sedated. IMPRESSION: 1. Vuakm-yl-maxxhyx hypoxic respiratory failure. 2. Right pneumothorax, most likely spontaneous. 3. Cardiopulmonary arrest. 4. Atelectasis of the left lung. 5. Severe pulmonary hypertension. 6. End-stage renal disease. RECOMMENDATIONS: 1. We will continue mechanical ventilation, adjust the setting, change to SIMV. 2. Continue empiric antibiotic. 3. Consult cardiothoracic surgery for the significant air leak and bronchopleural fistula. 4. Albuterol/ipratropium nebulizer. 5. GI and stress ulcer prevention. 6. Follow up labs and chest radiograph. Discussed with Dr. Murrell. Discussed with Dr. Nuñez. Dr. Nuñez, thank you for involving in the care of Ms. Fisher. TRANSINT:[id number] Voice Confirmation ID: [id number] DOCUMENT ID: [id number] MORIS VILLEGAS MD at 1218 CC: [id number] DICTATION DATE: 08/04/17 173 STOCK COUNTER: 08/04/17 1820 ADM IN [place] [id number] [place] [id number]
--- NOTE | ~2017-08-04 | OP ---
PATIENT NAME: LEONEL FISHER MEDICAL RECORD: [id number] :60 LOCATION:.[facility] D.2307 ADMISSION DATE:08/04/17 SURGEON: MORIS VILLEGAS MD DATE OF OPERATION: 08/04/2017 INDICATION: The patient has total atelectasis of the left lung. Fiberoptic bronchoscopy was carried out to remove the mucus plugging. MONITORING: EKG, pulse, and blood pressure were monitored throughout the procedure. The fiberoptic bronchoscope was passed through the ET tube. There was a thick whitish secretion occluding the left lower lobe segments. There were no endobronchial lesions were seen. The jordan was sharp. The right main bronchus, the subsegment of right upper lobe, right lower lobe within normal range. There were also thick whitish secretions, but there was no mucus plugging on the right side. Specimen washing was obtained and sent for routine culture and sensitivity, AFB, fungus, and cytology. TRANSINT:[id number] Voice Confirmation ID: [id number] DOCUMENT ID: [id number] MORIS VILLEGAS MD at 1218 CC: [id number] DICTATION DATE: 08/04/17 1739 RETINAL SURGEON: 08/04/17 1822 ADM IN [place] [id number] [place] [address]
[~2017-08-04 02:31] MED LIST changes: +OMNICEF300 MG PO; +PREDNISONE10 MG PO; +VIBRAMYCIN 100100 MG PO
[2017-08-04 19:17] LABS: HEMATOCRIT 22.1 % (36.0-48.0)
[2017-08-04 19:18] LABS: HEMOGLOBIN 7.3 g/dL (12-16)
[2017-08-04 19:37] LABS: MCH 32.3 pg (26.0-34.0); MCHC 33.2 g/dL (31.0-37.0); MCV 97.3 fL (80.0-100.0); MEAN PLATELET VOLUME 10.5 fL (7.4-10.4); RBC 2.26 10x6/uL (4.00-5.40); RDW 14.8 % (11.5-14.5)
[2017-08-04 19:48] LABS: APTT 50.9 SECONDS (22.8-39.4); INR 1.77 (0.85-1.17); PROTIME 20.1 SECONDS (11.6-15.0)
[2017-08-04 19:52] LABS: HEMOGLOBIN 7.3 g/dL (12-16)
[2017-08-04 19:53] LABS: ANION GAP 19.8 mmol/L (8-16); CALCIUM 7.2 mg/dL (8.5-10.1); CARBON DIOXIDE 20.1 mmol/L (21.0-32.0); CREATININE - SERUM 5.3 mg/dL (0.6-1.3)
[2017-08-04 19:55] LABS: POTASSIUM - SERUM 2.9 mmol/L (3.5-5.1)
[2017-08-04 22:19] LABS: HEMATOCRIT 22.8 % (36.0-48.0)
[2017-08-04 22:20] LABS: HEMOGLOBIN 7.5 g/dL (12-16)
[2017-08-05] VITALS (29 sets, daily range): BP systolic 74–166; BP diastolic 47–92; Ht 142.2 cm; Wt 40.5 kg
[2017-08-05 05:46] LABS: BASOPHILS 0.1 % (0-2); EOSINOPHILS 0 % (0-7); IMMATURE GRANULOCYTES 0.2 % (0-5); LYMPHOCYTES 22.4 % (15-50); MCH 30.8 pg (26.0-34.0); MCHC 34.2 g/dL (31.0-37.0); MEAN PLATELET VOLUME 10.7 fL (7.4-10.4); MONOCYTES 4.6 % (2-11); NEUTROPHILS 72.7 % (40-80); RDW 15.7 % (11.5-14.5); WBC 10.7 10x3/uL (4.8-10.8)
[2017-08-05 05:57] LABS: INR 1.66 (0.85-1.17); PROTIME 19.1 SECONDS (11.6-15.0)
[2017-08-05 05:58] LABS: HEMATOCRIT 30.4 % (36.0-48.0); HEMOGLOBIN 10.4 g/dL (12-16); MCV 89.9 fL (80.0-100.0); PLATELET COUNT 199 10x3/uL (130-400); RBC 3.38 10x6/uL (4.00-5.40)
[2017-08-05 06:07] LABS: ANION GAP 15.3 mmol/L (8-16); CALCIUM 7.7 mg/dL (8.5-10.1); CARBON DIOXIDE 22.1 mmol/L (21.0-32.0); CREATININE - SERUM 5.6 mg/dL (0.6-1.3)
[2017-08-05 06:09] LABS: POTASSIUM - SERUM 3.4 mmol/L (3.5-5.1)
[2017-08-05 13:19] LABS: FUNGUS STAIN Final report (())
[2017-08-05 19:12] LABS: AFB SPECIMEN PROCESSING Concentration (())
[2017-08-06] VITALS (8 sets, daily range): BP systolic 92–126; BP diastolic 51–62
[2017-08-06 04:44] LABS: BASOPHILS 0.1 % (0-2); EOSINOPHILS 0.1 % (0-7); HEMATOCRIT 24.6 % (36.0-48.0); HEMOGLOBIN 8.4 g/dL (12-16); IMMATURE GRANULOCYTES 0.1 % (0-5); LYMPHOCYTES 23.9 % (15-50); MCH 30.1 pg (26.0-34.0); MCHC 34.1 g/dL (31.0-37.0); MCV 88.2 fL (80.0-100.0); MEAN PLATELET VOLUME 11.2 fL (7.4-10.4); MONOCYTES 4.6 % (2-11); NEUTROPHILS 71.2 % (40-80); RBC 2.79 10x6/uL (4.00-5.40); RDW 17.9 % (11.5-14.5); WBC 8.1 10x3/uL (4.8-10.8)
[2017-08-06 04:57] LABS: PLATELET COUNT 140 10x3/uL (130-400)
[2017-08-06 04:58] LABS: ANION GAP 14.1 mmol/L (8-16); CALCIUM 7.2 mg/dL (8.5-10.1); CARBON DIOXIDE 26.1 mmol/L (21.0-32.0); POTASSIUM - SERUM 3.2 mmol/L (3.5-5.1)
[2017-08-06 05:02] LABS: CREATININE - SERUM 3.7 mg/dL (0.6-1.3)
[2017-08-11 14:21] LABS: FUNGUS CULTURE RESULT 1 Candida dubliniensis (())
[2017-08-31 14:20] LABS: FUNGUS MYCOLOGY CULTURE Final report (())
[2017-09-26 18:07] LABS: ACID FAST CULTURE Negative (()); ACID FAST SMEAR Negative (())
== END 2017-08-06 17:32 | disposition hospice, inpatient (51) | DRG 208 ==
LOC: D.ICU 02:31
PROVIDERS: Internal Medicine; Internal Medicine Nephrology; Internal Medicine Pulmonary Disease; Thoracic Surgery (Cardiothoracic Vascular Surgery)
PROC: 05HN33Z Insertion of Infusion Device into Left Internal Jugular Vein, Percutaneous Approach (ICD-10-PCS; principal; 2017-08-04)
PROC: 5A1945Z Respiratory Ventilation, 24-96 Consecutive Hours (ICD-10-PCS; 2017-08-04)
PROC: 0BCB8ZZ Extirpation of Matter from Left Lower Lobe Bronchus, Via Natural or Artificial Opening Endoscopic (ICD-10-PCS; 2017-08-04)
PROC: 0W9900Z Drainage of Right Pleural Cavity with Drainage Device, Open Approach (ICD-10-PCS; 2017-08-05)
DX: J96.00 Acute respiratory failure, unspecified whether with hypoxia or hypercapnia (principal); I46.9 Cardiac arrest, cause unspecified; N18.6 End stage renal disease; J93.9 Pneumothorax, unspecified; I12.0 Hypertensive chronic kidney disease with stage 5 chronic kidney disease or end stage renal disease; G93.1 Anoxic brain damage, not elsewhere classified; Z99.2 Dependence on renal dialysis; I27.20 Pulmonary hypertension, unspecified; J44.9 Chronic obstructive pulmonary disease, unspecified; D63.1 Anemia in chronic kidney disease; Z66 Do not resuscitate

== ENCOUNTER 2017-08-06 17:00 | Inpatient (IN) | payer OTHER ==
[~2017-08-06] VITALS: Ht 142.2 cm; Wt 40.5 kg
[2017-08-06 19:20] VITALS: BP 117/60; Ht 142.2 cm; Wt 40.5 kg
== END 2017-08-06 17:40 | DRG 951 ==
LOC: D.SDCHOLD 17:00 → D.ICU 17:00
DX: Z51.5 Encounter for palliative care (principal)